=== PATIENT | female | born 1935 | race Caucasian/White ===

== ENCOUNTER 2017-02-25 10:47 | Outpatient (CLI) | payer OTHER, MEDICARE ==
[~2017-02-25 10:47] MED LIST: DITROPAN EQUIVAL5 MG PO; PRESERVISION AREDS 2 PO; VANCOMYCIN PO; VICODIN EQUIVAL1 TAB PO
--- NOTE | 2017-02-25 19:51 | DIAGNOSTIC IMAGING REPORT ---
PROCEDURE: MG UNILAT SCREEN-LEFT W/CAD INDICATION: Screening, remote personal history of right breast cancer status post mastectomy. Family history of daughter with breast cancer TECHNIQUE: Standard CC and MLO views of the left breast. Computer aided detection was used. COMPARISON: 11/27/2015, 10/29/2014, 08/28/2013 FINDINGS: Moderately dense fibroglandular tissue is present. No developing densities, areas of architectural distortion, or suspicious microcalcifications. IMPRESSION: 1. Stable left breast mammograms without radiographic evidence of malignancy. RESULT CODE: 1- Negative. A. A negative report should not delay biopsy if a dominant or clinically suspicious mass is present. 10-15% of cancers are not identified by x-ray. B. A negative report may reinforce clinical impression. C. Adenosis and dense breasts may obscure an underlying neoplasm. D. False positive reports average 6-10%. E.. A yearly screening mammogram is recommended. A reminder letter will be scheduled.
== END 2017-02-25 23:00 ==
LOC: MAM SRH 10:47
DX: Z12.31 Encounter for screening mammogram for malignant neoplasm of breast (principal); Z85.3 Personal history of malignant neoplasm of breast; Z80.3 Family history of malignant neoplasm of breast